=== PATIENT | male | born 1985 | race Caucasian/White ===

== ENCOUNTER 2018-10-29 16:55 | Emergency (ER) | payer BC, SELFPAY ==
[2018-10-29 17:02] VITALS: BP 142/60; PULSE 72; RESP 17; TEMP 36.8; O2SAT 99; BMI 30.9
[2018-10-29] MEDS: DEXAMETHASONE 10 MG/ML VIAL IV (17:16)
[2018-10-29] MEDS: KETOROLAC 60 MG/2 ML VIAL 15 MG IV (17:16)
--- NOTE | 2018-10-29 17:45 | ED_ITS ---
HPI - Back Pain/Injury General Chief Complaint: Back Pain/Injury Stated Complaint: Back Pain Time Seen by Provider: 10/29/18 16:58 Source: patient and EMS Mode of arrival: EMS Limitations: no limitations History of Present Illness HPI Narrative: 33-year-old nonsmoking male presents by air medical transport for evaluation of lumbar pain since this afternoon. He was bending over tying his shoes when he felt a sudden pulling pain in his lumbar region. He states the pain is worse with motion and improves with rest. He denies any numbness, tingling or weakness. He denies radiation of the pain. He denies any trouble with control of bowel or bladder. He denies foot drop. He denies any midline pain, fever, chills or history of IV drug abuse. He was seen and evaluated by paramedics and because he was still having some residual pain after multiple medications having been administered by his girlfriend including ibuprofen, Tylenol, gabapentin he was administered Dilaudid 1 mg. Patient has had sciatica in the past but states this feels different. MD Complaint: back pain Onset (ago): hour(s) Duration: constant Similar Symptoms Previously: Yes Location: lumbar spine Severity: moderate Quality: burning and sharp Radiation: none Relieving factors: immobilization Exacerbating factors: movement Context: turning/twisting and bending Associated symptoms: denies other symptoms Treatments prior to arrival: heat therapy, NSAIDS, acetaminophen, other medications and prescription analgesics Related Data Home Medications Medication Instructions Recorded Confirmed buspirone 10 mg PO TID 10/29/18 10/29/18 clonazepam [Klonopin] 1 mg PO PRN PRN 10/29/18 10/29/18 olanzapine [Zyprexa] 10 mg PO DAILY 10/29/18 10/29/18 Previous Rx's Medication Instructions Recorded cyclobenzaprine 10 mg PO TID PRN #10 tab 10/29/18 ketorolac 10 mg PO Q6H #14 tab 10/29/18 methylprednisolone [Medrol (Zan)] See Label Instructions PO PER PKG 10/29/18 DIR #21 each Allergies Allergy/AdvReac Type Severity Reaction Status Date / Time sertraline [From Zoloft] Allergy Verified 10/29/18 17:11 Review of Systems Review of Systems All systems reviewed & are unremarkable except as noted in HPI and below Constitutional Denies chills, Denies fever(s), Denies lethargy and Denies weakness Eyes Denies change in vision, Denies eye discharge, Denies irritation and Denies loss of vision ENT Ears, Nose, Mouth, and Throat: Denies change in voice, Denies neck pain and Denies sore throat Cardiovascular Denies chest pain, Denies irregular heart rhythm, Denies lightheadedness, Denies palpitations, Denies dyspnea, Denies dyspnea on exertion and Denies orthopnea Respiratory Denies cough, Denies dyspnea, Denies dyspnea on exertion and Denies wheezing Gastrointestinal Gastrointestinal: Denies abdominal pain, Denies change in bowel habits, Denies diarrhea, Denies nausea and Denies vomiting Genitourinary Denies hematuria, Denies flank pain, Denies urinary incontinence and Denies urinary urgency Musculoskeletal Reports back pain and Denies neck pain Integumentary/Breasts Denies pruritus, Denies erythema, Denies rash and Denies wounds Neurologic Denies confusion, Denies loss of vision and Denies weakness Psychiatric Denies anxiety, Denies confusion, Denies depression, Denies homicidal ideation and Denies suicidal ideation Endocrine Denies palpitations Hematologic/Lymphatic Denies easy bruising Allergic/Immunologic Denies wheezing [facility] Social History Smoking Status: Never smoker Exam Narrative Exam Narrative: GEN: AOx3 and in mild distress EYES: Pupils are equal, round, and reactive to light and accommodation. Extraoccular muscles are intact bilaterally. There is no subconjunctival hemorrhage or exudate. CHEST: Lungs are clear to auscultation bilaterally and free of wheezes, rales, or rhonchi. Heart rate is regular rhythm, there are no murmurs, clicks, rubs, or gallops. There is no chest wall tenderness. ABD: Abdomen is soft and nontender. There is no guarding or rebound. Bowel sounds are normal in all 4 quadrants. There is no mass or organomegaly. EXT: Full painless ROM of all extremities with no loss of sensation or strength. SKIN: Warm, pink, and dry. No erythema or rash BACK: forge tender but free of any obvious external abnormalities. Patient exam notes decreased range of motion and muscle spasm, but no CVA tenderness, or vertebral point tenderness. There are no symptoms of cauda equina such as saddle anesthesia, and decreased reflexes, decreased sensation or strength. Initial Vital Signs Initial Vital Signs: Vital Signs Temperature 98.3 F 10/29/18 17:02 Pulse Rate 72 10/29/18 17:02 Respiratory Rate 17 10/29/18 17:02 Blood Pressure 142/60 H 10/29/18 17:02 Pulse Oximetry 99 10/29/18 17:02 Course Orders Ordered: Discontinued Medications Dexamethasone (Decadron) 10 mg IV NOW ONE Stop: 10/29/18 17:08 Last Admin: 10/29/18 17:16 Dose: 10 mg Ketorolac Tromethamine (Toradol) 15 mg IV NOW ONE Stop: 10/29/18 17:08 Last Admin: 10/29/18 17:16 Dose: 15 mg Vital Signs - 8 hr 10/29/18 17:02 Temperature 98.3 F Pulse Rate 72 Respiratory Rate 17 Blood Pressure 142/60 H Pulse Oximetry 99 MDM - Back Pain/Injury Differential Diagnosis Differential diagnosis: Likely lumbar radiculopathy, sciatica and strain of lumbar region MDM Narrative Medical decision making narrative: Multiple etiologies of back pain including lumbar strain, sciatica, cauda equina syndrome, epidural abscess or hematoma are considered. More significant etiology is thought less likely given lack of neurologic symptoms, radiation of pain, weakness or midline pain. Patient is able to hop off the car and walk although a bit gingerly, almost immediately upon arrival. He is given anti-inflammatories and steroids through the IV and extensive return precautions. Lengthy discussion about whether labs or imaging were likely to play a role and it is thought that MRI is not indicated given lack of findings of cauda equina or epidural abscess. Discharge Plan Departure Patient Disposition: Home Clinical Impression: Lumbar back pain Instructions: DI for Low Back Pain Activity Restrictions/Additional Instructions: *You have been diagnosed with [ acute lumbar pain without sciatica or signs of cauda equina ] *What to do: *Take medications as directed *Follow up with your primary care provider in 2-3 days, call for an appointment. Let them know you were seen in the Emergency Department and that we ask that you be seen in follow up. Based on her response to the prescribed medications they may continue medications, suggest physical therapy, acupuncture or other treatment modality, or for worsening or persistent symptoms they may set you up with MRI. *Return to ER if you should have any new, worsening or concerning symptoms , such as [ weakness, loss of control of bowel or bladder, other bothersome symptoms] Prescriptions: New cyclobenzaprine 10 mg tablet 10 mg PO TID PRN (Reason: muscle spasm) Qty: 10 RF: 0 ketorolac 10 mg tablet 10 mg PO Q6H Qty: 14 RF: 0 methylprednisolone [Medrol (Zan)] 4 mg tablets,dose pack See Label Instructions PO PER PKG DIR Qty: 21 RF: 0 No Action clonazepam [Klonopin] 1 mg Tablet 1 mg PO PRN PRN (Reason: Anxiety) RF: 0 olanzapine [Zyprexa] 10 mg Tablet 10 mg PO DAILY RF: 0 buspirone 10 mg Tablet 10 mg PO TID RF: 0
--- NOTE | 2018-10-29 17:45 | PC.NURSE ---
Pt states pain has how resolved. Denies difficulty with bowels and bladder. hx sciatica pain states this time it does not go down his legs.
[2018-10-29 17:56] VITALS: BP 139/86; PULSE 75; RESP 17; TEMP 36.9; O2SAT 99
== END 2018-10-29 18:00 | disposition home or self-care (01) ==
LOC: ED 18:00
PROVIDERS: Emergency Provider Emergency Medicine
DX: M54.5 Low back pain (principal)
CPT/HCPCS: 96374; 96375; 99282; 99284; J1100; J1885